=== PATIENT | female | born 1975 | race Caucasian/White ===

== ENCOUNTER 2022-11-28 18:12 | Emergency (ER) | payer OTHER ==
[~2022-11-28] VITALS: Ht 157.5 cm; Wt 65.8 kg
[2022-11-28] MEDS ORDERED: TOPI15C (20:39)
== END 2022-11-28 21:45 | disposition home or self-care (01) ==
LOC: ER 18:12
DX: M25.562 Pain in left knee (principal); F17.210 Nicotine dependence, cigarettes, uncomplicated; W22.8XXA Striking against or struck by other objects, initial encounter; Z86.73 Personal history of transient ischemic attack (TIA), and cerebral infarction without residual deficits
CPT/HCPCS: 73562-LT; 99283-25

== ENCOUNTER 2022-11-29 14:25 | Emergency (ER) | payer OTHER ==
[~2022-11-29] VITALS: Ht 157.5 cm; Wt 65.8 kg
[~2022-11-29 14:25] MED LIST: TOPI15C
== END 2022-11-29 17:20 | disposition home or self-care (01) ==
LOC: ER 14:25
DX: M25.562 Pain in left knee (principal); M79.601 Pain in right arm
CPT/HCPCS: 99283